=== PATIENT | female | born 1935 | race Caucasian/White ===

== ENCOUNTER → 2016-10-15 | Outpatient (CLI) | payer MEDICARE, BC ==
--- NOTE | 2016-10-15 14:25 | REPMRS ---
Patient History The patient states she had a clinical breast exam in 07/06 Patient is postmenopausal and has history of skin cancer at age 73. Family history of unknown cancer in father at age 61. Took hormonal contraceptives for 10 years. Took estrogen for 15 years. Took progesterone for 15 years. Digital Woman Screen Mammo: October 15, 2016 - Exam #: [id number] Bilateral CC and MLO view(s) were taken. Technologist: Marifer Aldridge, Technologist Prior study comparison: June 22, 2015, digital woman screen mammo performed at [facility]. February 18, 2014, bilateral bilat screen digital mammo, performed at [facility] ([facility]). February 16, 2013, bilateral bilat screen digital mammo, performed at [facility] ([facility]). FINDINGS: There are scattered fibroglandular densities. There has been no change in the appearance of the mammogram from the prior studies. There is a mild amount of residual fibroglandular tissue which is fairly symmetric. There is no interval development of dominant mass, architectural distortion, or clustered microcalcification suggestive of malignancy. There are bilateral benign arterial calcifications noted. Large coarse benign appearing calcification is present in the left breast, stable. Scattered lymph nodes are seen in the axilla. No significant changes when compared with prior studies. ASSESSMENT: BI-RADS/ACR category 2 mammogram. Benign finding(s). Recommendation Routine screening mammogram in 1 year (for women over age 40). This mammogram was interpreted with the aid of an FDA-approved computer-aided dectection system. A. Negative x-ray reports should not delay biopsy if a dominant or clinically suspicious mass is present. B. Four to eight percent of cancers are not identified by mammography. C. Adenosis and dense breast may obscure an underlying neoplasm. Electronically Signed By: Vu Beckham MD 10/15/16 [id number]
--- NOTE | 2016-10-17 11:22 | DEXA ---
AP SPINE L1 - L4 1.025 -1.4 0.7 LT FEMUR TOTAL 0.873 -1.1 1.2 RT FEMUR TOTAL 0.937 -0.6 1.7 TOTAL BODY TOTAL OTHER DUAL FEMUR FRAX* ASSESSMENT Risk factors: Secondary osteoporosis (premature menopause) 10 year probability of fracture Major osteoporotic fracture 16.3 % Hip fracture 5.2 % COMMENTS: There is low bone density of the spine. There is low bone density of the left hip based on femoral neck T score -2.0 left There is low bone density of the right hip based on femoral neck T score -1.6 right. The decreased density of the spine does represent a significant change since . The increased density of the left hip does represent a significant change since 08/07/2012. The increased density of the right hip does not represent significant change. The density of the spine has increased 10.5% since the initial exam on 1998. The spine density has decreased 4.6% since the most recent exam on 08/07/2012. The density of the left hip has increased 16.4% since the initial exam on 1998. The density of the left hip has increased 2.3% since the most recent exam on . The density of the right hip has increased 5.5% since the initial exam on 2003. The density of the right hip has increased 0.2% since the most recent exam on . FOLLOW-UP: Recommendation for the next bone density exam: 2 years. [facility]
== END ==
LOC: M WHC 13:00
PROVIDERS: ATTEND Internal Medicine
DX: Z12.31 Encounter for screening mammogram for malignant neoplasm of breast (principal); M85.80 Other specified disorders of bone density and structure, unspecified site; Z78.0 Asymptomatic menopausal state; Z92.0 Personal history of contraception; Z92.23 Personal history of estrogen therapy; Z92.29 Personal history of other drug therapy; Z80.9 Family history of malignant neoplasm, unspecified; Z85.828 Personal history of other malignant neoplasm of skin
CPT/HCPCS: 77080; G0202